=== PATIENT | male | born 1945 | race Caucasian/White ===

== ENCOUNTER 2022-12-22 11:15 | Emergency (ER) | payer MEDICARE, BC, SELFPAY ==
[2022-12-22 11:39] VITALS: BP 135/81; PULSE 61; RESP 18; TEMP 36.1; O2SAT 96; BMI 26.0
--- NOTE | 2022-12-22 16:24 | ED.GENADULT ---
HPI - General Adult General Date Seen: 12/22/22 Chief complaint: Back Injury/Pain Stated complaint: threw back out Time Seen by Provider: 12/22/22 13:48 Source: patient Mode of arrival: ambulatory Limitations: no limitations History of Present Illness HPI narrative: Patient is a 77-year-old male who says he was golfing over the weekend. He says it was cold out, and he did not do any kind of warm up. He says his son who is an ER doctor in [place] says it is his own fault for not warming up at all that his back hurts. He says he woke up this morning and his back was so see if and sore that he could barely get out of bed. He has pain across the low back, does not have any radiating pain, no fevers, no bowel or bladder changes. He says the same thing happened about a year and half ago, seen here, given 3 medications and improved over the next few days. He wanted to go to clinic but was not able to get an appointment in the next few days. Related Data Home Medications Medication Instructions Recorded Confirmed losartan 25 mg tablet 25 mg PO DAILY 12/22/22 12/22/22 metoprolol succinate 25 mg 25 mg PO DAILY 12/22/22 12/22/22 tablet,extended release 24 hr rosuvastatin 20 mg tablet 20 mg PO QPM 12/22/22 12/22/22 Allergies Allergy/AdvReac Type Severity Reaction Status Date / Time No Known Drug Allergies Allergy Verified 12/22/22 11:45 Review of Systems Status of ROS: Reports: 6 or more systems reviewed and unremarkable except as noted in History and below [facility] Social History Smoking Status: Never smoker Non-prescribed substance use: denies use Exam Narrative: Exam Narrative: Vital signs as noted above. In general, an alert, well-appearing patient. Stands up stiffly, holding his back very erect. Head: Normocephalic, atraumatic. Eyes: Pupils are equal reactive. ENT: Mucous membranes are moist. Neck: Supple without lymphadenopathy. Heart: Regular rate and rhythm. No murmur or rub. Lungs: Clear bilaterally. No increased work of breathing, crackles or wheezes. Abdomen: Soft and nontender. No organomegaly. Back: Mild muscular tenderness across the low back. Range of motion limited secondary to pain. Extremities: Well perfused. Neurologic: Patient is alert and oriented to person and place. Speech is fluent. Face is symmetric. Moves all extremities equally. Strength in lower extremities is 5 of 5, sensation intact to light touch. Affect: Normal. Skin: Warm and dry. Well perfused. Const: Vital Signs, click to edit/add: Vital Signs - 24 hr 12/22/22 11:39 Temperature 97.0 F L Pulse Rate [Right Pulse Oximeter] 61 Respiratory Rate 18 Blood Pressure [Ri ght Upper Arm] 135/81 Pulse Oximetry 96 Oxygen Delivery Me thod Room Air Documenting provider has reviewed patient's vital signs: yes Course Course Hospital Course: No red flags to suggest that he needs imaging. This is likely muscle spasm. Does not seem to be radiculopathy. Have reviewed his records, previously he was given Toradol, [place], Flexeril. Will repeat these. Primary care follow-up if not improving. Return for acute worsening. Vital Signs Vital signs: Initial Vital Signs Temperature 97.0 F L 12/22/22 11:39 Temperature Source Temporal Artery Scan 12/22/22 11:39 Pulse Rate 61 12/22/22 11:39 Pulse Rhythm Regular 12/22/22 11:39 Respiratory Rate 18 12/22/22 11:39 Blood Pressure 135/81 12/22/22 11:39 Blood Pressure Mean 99 12/22/22 11:39 Blood Pressure Position Standing 12/22/22 11:39 Pulse Oximetry 96 12/22/22 11:39 Oxygen Delivery Method Room Air 12/22/22 11:39 Vital Signs Temperature 97.0 F L 12/22/22 11:39 Pulse Rate 61 12/22/22 11:39 Respiratory Rate 18 12/22/22 11:39 Blood Pressure 135/81 12/22/22 11:39 Pulse Oximetry 96 12/22/22 11:39 Oxygen Delivery Method Room Air 12/22/22 11:39 Temperature 97.0 F L 12/22/22 11:39 Pulse Rate 61 12/22/22 11:39 Respiratory Rate 18 12/22/22 11:39 Blood Pressure 135/81 12/22/22 11:39 Pulse Oximetry 96 12/22/22 11:39 Oxygen Delivery Method Room Air 12/22/22 11:39 Discharge Plan Discharge Clinical Impression: Low back pain Patient Disposition: Home, Self-Care Condition: Stable Instructions: Acute Low Back Pain (ED) Additional Instructions: Medications as prescribed. Follow up with primary care if not improving over the next week or so. Return for severe uncontrolled symptoms or new symptoms such as weakness, fevers, bowel or bladder changes. Prescriptions: No Action losartan 25 mg tablet 25 mg PO DAILY metoprolol succinate 25 mg tablet extended release 24 hr 25 mg PO DAILY rosuvastatin 20 mg tablet 20 mg PO QPM Follow Up/Referrals: Amada Crews DO [Primary Care Provider] - Stand Alone Forms: Skin Scan Info Instructions
== END 2022-12-22 14:40 | disposition home or self-care (01) ==
PROVIDERS: Emergency Provider Emergency Medicine; PCP Family Medicine
DX: M54.50 Low back pain, unspecified (principal); X50.1XXA Overexertion from prolonged static or awkward postures, initial encounter; Y93.53 Activity, golf
CPT/HCPCS: 99283; 99284